=== PATIENT | female | born 1975 | race Caucasian/White ===

== ENCOUNTER 2019-09-09 11:13 | Outpatient (CLI) | payer BC, SELFPAY ==
--- NOTE | ~2019-09-09 | MMUS_ITS ---
EXAMINATION: MM diagnostic amie LT w zack, US breast LT limited HISTORY: Palpable left breast abnormality. Nipple discharge. TECHNIQUE: Additional 3-D tomosynthesis images of the left breast were performed and synthetic 2-D im ages were generated. CAD analysis was submitted and interpreted. High resolution left breast ultrasou nd was performed. COMPARISON: 12/13/2018 FINDINGS: MAMMOGRAPHIC FINDINGS: Breast composed of scattered areas of fibroglandular density. There are no suspicious masses, calcifi cations or architectural distortion in the left breast to suggest malignancy. ULTRASOUND: Left breast ultrasound: Normal heterogeneous echotexture in the area palpable concern. No discrete mass. IMPRESSION: 1. No mammographic or sonographic evidence for malignancy in the left breast. 2. Routine yearly screening mammogram and regular clinical breast examination are recommended. Recomm end follow-up clinical management for breast discharge. BI-RADS Category 1: Negative Reviewed, dictated and finalized at location A. IMPRESSION: 1. No mammographic or sonographic evidence for malignancy in the left breast. 2. Routine yearly screening mammogram and regular clinical breast examination a re recommended. Recommend follow-up clinical management for breast discharge. BI-RADS Category 1: Negative
== END 2019-09-09 11:14 | disposition home or self-care (01) ==
LOC: ANHIMG 11:18
PROVIDERS: PCP Family Medicine; Visit Provider Physician Assistant Medical
DX: N64.59 Other signs and symptoms in breast (principal)
CPT/HCPCS: 76642; 77061; 77065; G0279

== ENCOUNTER 2020-03-23 16:52 | Outpatient (CLI) | payer BC, SELFPAY ==
[2020-03-23 17:35] LABS: Hematocrit 41.8 % (37.0-47.0); Hemoglobin 13.8 g/dL (12.0-15.0); Mean Corpuscular Hemoglobin 31.4 pg (26-34); Mean Corpuscular Volume 95.2 fl (80-100); Mean Platelet Volume 10.8 fl (7.4-10.4); Platelet Count Result 287 k/mm3 (150-375); Red Blood Count 4.39 M/mm3 (4.2-5.4); Red Cell Distribution Width 12.4 % (11.5-14.5); White Blood Count 8.3 K/mm3 (4.5-10.0)
[2020-03-23 17:46] LABS: Anion Gap 7 mmol/L (8-16); Blood Urea Nitrogen 9 mg/dL (7-17); Calcium 8.9 mg/dL (8.4-10.2); Carbon Dioxide 26 mmol/L (22-30); Chloride 104 mmol/L (98-107); Estimated Glomerular Filt Rate > 60; Glucose 90 mg/dL (65-105); Potassium 3.7 mmol/L (3.4-5.0); Sodium 137 mmol/L (137-145)
== END 2020-03-23 16:53 | disposition home or self-care (01) ==
LOC: ANHLAB 16:53
PROVIDERS: PCP Family Medicine; Visit Provider Physician Assistant Medical
DX: R00.2 Palpitations (principal)
CPT/HCPCS: 36415; 80048; 84443; 85027

== ENCOUNTER 2020-03-31 08:40 | Outpatient (CLI) | payer BC, SELFPAY ==
--- NOTE | 2020-03-31 08:49 | EST_ITS ---
Patient Info Name: Tatyana Steiner Age: 44 years : 1975 Gender: Female Ht: 69 in Wt: 203 lbs BSA: 2.14 m2 Exam Date: 03/31/2020 9:08 AM Exam Location: [facility] Stress Patient Status: Outpatient Admit Date: 03/31/2020 Staff Ordering Physician: Debra Joaquin PAC Attending Provider: Debra Joaquin Exercise Technologist: Guillermina Lazo RDCS Exercise Physician: Roberto Lee DO Exam Type: CA stress test treadmill Study Info Indications R00.2 - Palpitations R07.9 - Chest pain, unspecified A treadmill exercise stress test was performed. Summary 1. 1. Negative Kendall exercise stress test for ischemic ST changes by ECG criteria. 2. 2. Good functional capacity, achieving 10 METs of workload. 3. 3. Appropriate HR response to exercise. 4. 4. Appropriate HR recovery at 1 minute post exercise. 5. 5. No imaging with stress testing. 6. 6. Patient informed of the above results. Protocol: [facility]all Stress ECG Details Stage: REST Duration (min): 6 min : 46 sec Speed (mph): 0.0 Grade (%): 0 HR (bpm): 70 SBP (mmHg): 131 DBP (mmHg): 80 METS: --- Stage: REST Duration (min): 9 min : 42 sec Speed (mph): 0.0 Grade (%): 0 HR (bpm): 74 SBP (mmHg): 131 DBP (mmHg): 80 METS: --- Stage: STAGE 1 Duration (min): 1 min : 0 sec Speed (mph): 1.7 Grade (%): 10 HR (bpm): 106 SBP (mmHg): 131 DBP (mmHg): 80 METS: --- Stage: STAGE 1 Duration (min): 2 min : 0 sec Speed (mph): 1.7 Grade (%): 10 HR (bpm): 115 SBP (mmHg): 131 DBP (mmHg): 80 METS: --- Stage: STAGE 1 Duration (min): 3 min : 0 sec Speed (mph): 1.7 Grade (%): 10 HR (bpm): 122 SBP (mmHg): 147 DBP (mmHg): 82 METS: --- Stage: STAGE 2 Duration (min): 1 min : 0 sec Speed (mph): 2.5 Grade (%): 12 HR (bpm): 132 SBP (mmHg): 147 DBP (mmHg): 82 METS: --- Stage: STAGE 2 Duration (min): 2 min : 0 sec Speed (mph): 2.5 Grade (%): 12 HR (bpm): 139 SBP (mmHg): 150 DBP (mmHg): 79 METS: --- Stage: STAGE 2 Duration (min): 3 min : 0 sec Speed (mph): 2.5 Grade (%): 12 HR (bpm): 141 SBP (mmHg): 150 DBP (mmHg): 79 METS: --- Stage: STAGE 3 Duration (min): 1 min : 0 sec Speed (mph): 3.4 Grade (%): 14 HR (bpm): 157 SBP (mmHg): 152 DBP (mmHg): 78 METS: --- Stage: STAGE 3 Duration (min): 2 min : 0 sec Speed (mph): 3.4 Grade (%): 14 HR (bpm): 164 SBP (mmHg): 152 DBP (mmHg): 78 METS: --- Stage: STAGE 3 Duration (min): 2 min : 0 sec Speed (mph): 3.4 Grade (%): 14 HR (bpm): 164 SBP (mmHg): 152 DBP (mmHg): 78 METS: --- Stage: RECOVERY Duration (min): 0 min : 59 sec Speed (mph): 0.0 Grade (%): 0 HR (bpm): 137 SBP (mmHg): 111 DBP (mmHg): 78 METS: --- Stage: RECOVERY Duration (min): 1 m
--- NOTE | 2020-04-02 11:51 | WPDHOLTEREM ---
Holter/Event Monitor Holter/Event Monitor Date of procedure: 03/31/20 Procedure Type: 24 hour holter monitor Indications: Chest pain Conclusion: 1. 24 hour holter monitor on 03/31/20. 2. Underlying rhythm is sinus rhythm. HR range 49-133 bpm; average HR 78 bpm. 3. There are 2 premature supraventricular complexes. No supraventricular tachycardia. 4. No premature ventricular complexes. No ventricular tachycardia. 5. No sinoatrial or atrioventricular blocks. No significant pauses greater than 2 seconds. 6. Patient reports symptoms of palpitations and flutter which demonstrate sinus rhythm, HR range 77-88 bpm.
== END 2020-03-31 08:41 | disposition home or self-care (01) ==
PROVIDERS: PCP Family Medicine; Visit Provider Physician Assistant Medical
DX: R07.9 Chest pain, unspecified (principal); R00.2 Palpitations
CPT/HCPCS: 93017; 93225; 93226

== ENCOUNTER 2020-05-30 09:01 | Outpatient (CLI) | payer BC, SELFPAY ==
[2020-05-30 09:28] LABS: Cholesterol 197 mg/dL (0-200); HDL Direct 68 mg/dL; Triglycerides 175 mg/dL (<150)
[2020-05-30 09:41] LABS: LDL Cholesterol Direct 110 mg/dL
== END 2020-05-30 09:02 | disposition home or self-care (01) ==
LOC: ANHLAB 09:03
PROVIDERS: PCP Family Medicine; Visit Provider Internal Medicine Cardiovascular Disease
DX: Z13.220 Encounter for screening for lipoid disorders (principal); Z13.6 Encounter for screening for cardiovascular disorders; R00.2 Palpitations; E66.3 Overweight
CPT/HCPCS: 36415; 80061

== ENCOUNTER 2021-08-25 07:11 | Outpatient (CLI) | payer OTHER, SELFPAY ==
[2021-08-25 07:57] LABS: Basophils Percent Auto 0.6 % (0.2-1.2); Eosinophils Absolute Auto 0.1 K/mm3 (0-0.3); Eosinophils Percent Auto 1.5 % (0-4.4); Hematocrit 42.1 % (37.0-47.0); Hemoglobin 13.5 g/dL (12.0-15.0); Immature Granulocyte Absolute 0.01 K/mm3 (0.00-0.031); Immature Granulocyte Percent A 0.2 % (0-0.5); Lymphocytes Absolute Auto 2.13 K/mm3 (0.9-3.2); Lymphocytes Percent Auto 32.6 % (18.3-44.2); Mean Corpuscular HGB Conc 32.1 g/dl (32-36); Mean Corpuscular Hemoglobin 30.5 pg (26-34); Mean Corpuscular Volume 95.2 fl (80-100); Mean Platelet Volume 10.6 fl (7.4-10.4); Monocytes Absolute Auto 0.4 K/mm3 (0.1-0.6); Monocytes Percent Auto 6.3 % (2.6-8.5); Neutrophils Absolute Auto 3.8 K/mm3 (1.3-6.7); Neutrophils Percent Auto 58.8 % (45.5-73.1); Platelet Count Result 258 k/mm3 (150-375); Red Blood Count 4.42 M/mm3 (4.2-5.4); Red Cell Distribution Width 12.4 % (11.5-14.5); White Blood Count 6.5 K/mm3 (4.5-10.0)
[2021-08-25 08:13] LABS: Anion Gap 6 mmol/L (8-16); Blood Urea Nitrogen 10 mg/dL (7-17); Calcium 8.8 mg/dL (8.4-10.2); Carbon Dioxide 24 mmol/L (22-30); Chloride 108 mmol/L (98-107); Cholesterol 228 mg/dL (0-200); Estimated Glomerular Filt Rate > 60; Glucose 100 mg/dL (65-110); HDL Direct 70 mg/dL; Sodium 138 mmol/L (137-145); Triglycerides 144 mg/dL (<150)
[2021-08-25 08:26] LABS: LDL Cholesterol Direct 122 mg/dL
== END 2021-08-25 07:12 | disposition home or self-care (01) ==
LOC: ANHLAB 07:14
PROVIDERS: PCP Family Medicine; Visit Provider Physician Assistant Medical
DX: R73.01 Impaired fasting glucose (principal); N39.0 Urinary tract infection, site not specified; Z13.220 Encounter for screening for lipoid disorders
CPT/HCPCS: 36415; 80048; 80061; 85025

== ENCOUNTER 2022-01-04 10:14 | Outpatient (CLI) | payer OTHER, SELFPAY ==
--- NOTE | ~2022-01-04 | MM_ITS ---
EXAMINATION: MM screening [facility] BI w zack HISTORY: Screening mammogram TECHNIQUE: Craniocaudal and mediolateral oblique 3-D tomosynthesis images were obtained and synthetic 2-D images were generated. CAD analysis was submitted and interpreted. COMPARISON: 09/09/2019, 12/13/2018 BREAST PARENCHYMAL COMPOSITION: There are scattered areas of fibroglandular density. FINDINGS: No suspicious mass, calcification, or architectural distortion are identified in either melissa ast to suggest malignancy. There has been no suspicious interval change. IMPRESSION: 1. No mammographic evidence of malignancy. 2. Recommend routine screening mammography in one year. BI-RADS Category 1: Negative Reviewed, dictated and finalized at location A.
== END 2022-01-04 10:15 | disposition home or self-care (01) ==
PROVIDERS: PCP Family Medicine; Visit Provider Obstetrics & Gynecology
DX: Z12.31 Encounter for screening mammogram for malignant neoplasm of breast (principal)
CPT/HCPCS: 77063; 77067

== ENCOUNTER 2022-03-18 07:08 | Outpatient (CLI) | payer OTHER, SELFPAY ==
--- NOTE | ~2022-03-18 | MR_ITS ---
EXAMINATION: MR brain/brain stem wo con DATE: 03/18/2022 08:35 INDICATION: Dizziness. Ocular migraine. TECHNIQUE: Magnetic resonance imaging (MRI) of the brain and brainstem was performed without intraven ous contrast. COMPARISON: Head CT 12/01/2017 FINDINGS: There are greater than 15 scattered foci of increased T2-weighted signal intensity in the c erebral white matter. No infratentorial lesions. There is no acute ischemic infarct or intracranial h emorrhage. The ventricles are normal in size. Orbits are normal. The paranasal sinuses are clear. The mastoid air cells are normal. IMPRESSION: 1. Mild nonspecific cerebral white matter disease. The differential diagnosis includes premature employee services manager brenda small vessel ischemic disease (especially if the patient has cardiovascular risk factors), demyel inating disease such as multiple sclerosis, drug abuse, vasculitis, or reactive astrocytosis (gliosis ) secondary to nonspecific etiology. Reviewed, dictated and finalized at location A. N HOIST OPERATOR IMPRESSION: 1. Mild nonspecific cerebral white matter disease. The differential diagnosis i ncludes premature chronic small vessel ischemic disease (especially if the laina ent has cardiovascular risk factors), demyelinating disease such as multiple sc lerosis, drug abuse, vasculitis, or reactive astrocytosis (gliosis) secondary t o nonspecific etiology.
== END 2022-03-18 07:09 | disposition home or self-care (01) ==
PROVIDERS: PCP Family Medicine; Visit Provider Nurse Practitioner Family
DX: R42 Dizziness and giddiness (principal); G43.109 Migraine with aura, not intractable, without status migrainosus; R93.0 Abnormal findings on diagnostic imaging of skull and head, not elsewhere classified
CPT/HCPCS: 70551

== ENCOUNTER 2022-05-02 06:40 | Outpatient (CLI) | payer OTHER, SELFPAY ==
--- NOTE | ~2022-05-02 | MR_ITS ---
MRI of the left foot CLINICAL HISTORY: Pain TECHNIQUE: Sagittal T1-weighted and STIR images, axial proton-density and proton-density fat-sat imag es, and coronal T1-weighted and proton-density fat-sat images were acquired. FINDINGS: There is marrow edema extensively involving the second metatarsal shaft with probable focal cortical disruption, consistent with fracture/stress fracture at the distal second metatarsal shaft. Remaining osseous structures are intact. Joint spaces are preserved, without significant degenerative change. No joint effusion evident. Flexor and extensor tendons are intact. There is minimal intermetatarsal bursitis of the first inters pace. There is mild soft tissue edema about the stress fracture site. Musculature otherwise appears u nremarkable. No mass lesion or fluid collection evident. Lisfranc ligament is intact. IMPRESSION: Findings consistent with stress fracture versus nondisplaced complete fracture at the distal second m etatarsal shaft. Minimal intermetatarsal bursitis at the first interspace. Reviewed, dictated and finalized at [facility]. ERMAKER SHIP IMPRESSION: Findings consistent with stress fracture versus nondisplaced complete fracture at the distal second metatarsal shaft. Minimal intermetatarsal bursitis at the first interspace.
== END 2022-05-02 06:41 | disposition home or self-care (01) ==
PROVIDERS: PCP Family Medicine; Visit Provider Family Medicine
DX: M79.672 Pain in left foot (principal); R22.42 Localized swelling, mass and lump, left lower limb; R26.2 Difficulty in walking, not elsewhere classified; M77.52 Other enthesopathy of left foot and ankle
CPT/HCPCS: 73718

== ENCOUNTER 2022-09-13 12:13 | Emergency (ER) | payer OTHER, SELFPAY ==
--- NOTE | 2022-09-13 13:06 | ED.DENTAL ---
HPI - Dental/Oral General Chief complaint: Dental/Oral Stated complaint: R FACIAL PAIN/RED SPOT ON CORNER OF MOUTH Time Seen by Provider: 09/13/22 13:07 Source: patient, RN notes reviewed and old records reviewed Mode of arrival: ambulatory Limitations: no limitations History of Present Illness HPI Narrative: 47-year-old female presents to the [facility] with right facial pain. Has a cold sore to the right lateral lip area. Also reports swollen lymph node to the right lower jaw. Did see a dentist a year ago. Had to cancel due to being on Eliquis several months ago. Denies any dental pain Related Data Allergies Allergy/AdvReac Type Severity Reaction Status Date / Time amoxicillin Allergy Unknown Rash Verified 09/13/22 12:41 Sulfa (Sulfonamide Allergy Unknown Unknown Verified 09/13/22 12:41 Antibiotics) AMOXICILLIN TRIHYDRATE Allergy HIVES, Uncoded 09/13/22 12:41 ITCHING Review of Systems Review of Systems: All systems reviewed & are unremarkable except as noted in HPI and below Constitutional: Constitutional: Reports no additional constitutional complaints Eyes: Eyes: Reports no additional eye complaints ENT: Reports as per HPI Cardiovascular: Cardiovascular: Reports no additional cardiovascular complaints, Denies chest pain and Denies dyspnea Respiratory: Respiratory: Reports no additional respiratory complaints, Denies chest congestion, Denies cough and Denies dyspnea Gastrointestinal: Gastrointestinal: Reports no additional gastrointestinal complaints, Denies abdominal pain, Denies nausea and Denies vomiting Musculoskeletal: Musculoskeletal: Reports no additional musculoskeletal complaints Integumentary/Breasts: Skin/Breast: Reports system reviewed and no additional complaints, except as docu Neurologic: Reports system reviewed and no additional complaints, except as documented Psychiatric: Psychiatric: Reports no additional psychiatric complaints Allergic/Immunologic: Allergic/Immunologic: Reports no additional allergic/immunologic complaints [facility] Past Medical History Medical History BMI 29.0-29.9,adult BMI 30.0-30.9,adult Family History Family History Father Mesothelioma Mother COPD (chronic obstructive pulmonary disease) Tobacco abuse Sibling No problems noted. Other Diabetes mellitus Family history of coronary artery disease Family history of malignant neoplasm of breast Family history of malignant neoplasm of stomach Hypertension Social History Social History Smoking status: Never smoker Second hand tobacco smoke exposure: Yes Alcohol intake: current Substance use: never Substance use type: does not use Living arrangements: with family Occupation/Education: occupation Additional occupation/education comments: [employer] Gender identity (if verbalized by the patient): Female Comments At the time of my signature, I reviewed and agree with the nursing past medical, surgical, social, and family history. There is no relevant family history pertinent to the patient complaint. Exam Const: General: cooperative, healthy appearing, comfortable, no acute distress, well developed, alert and well nourished Nutritional Appearance: well nourished Orientation/consciousness: patient oriented x3 Limitations: no limitations HENMT: Head: normal to inspection Ears: hearing grossly normal bilaterally, external ears normal, TM's normal bilaterally, EAC's normal, mastoids normal and no periauricular adenopathy Face/Nose/Sinus: Normal external nose present, Normal nares present, Normal nasal mucous membranes and turbinates present and normal facial exam Face and sinus: normal facial exam Face images: 1. Cold sore blister noted Mouth: Yes Normal oral and p
[2022-09-13 14:46] VITALS: BP 142/87; PULSE 85; RESP 16; TEMP 36.2; O2SAT 99
== END 2022-09-13 13:30 | disposition home or self-care (01) ==
PROVIDERS: Emergency Provider Nurse Practitioner; PCP Internal Medicine
DX: R59.1 Generalized enlarged lymph nodes (principal); R68.84 Jaw pain; B00.1 Herpesviral vesicular dermatitis
CPT/HCPCS: 99213; G0463

== ENCOUNTER 2022-10-05 16:53 | Emergency (ER) | payer OTHER, SELFPAY ==
--- NOTE | ~2022-10-05 | XR_ITS ---
EXAMINATION: XR hip LT min 2V DATE: 10/05/2022 17:27 INDICATION: Left hip pain post fall TECHNIQUE: Anteroposterior and frog-leg lateral views of the left hip were obtained. COMPARISON: None. FINDINGS: Alignment is normal. No fracture. Joint spaces are normal. Soft tissues are unremarkable. IMPRESSION: 1. Negative left hip radiographs. Reviewed, dictated and finalized at location A.
--- NOTE | ~2022-10-05 | XR_ITS ---
EXAMINATION: XR tibia fibula LT 2V DATE: 10/05/2022 17:27 INDICATION: Left lower leg pain post fall TECHNIQUE: Anteroposterior and lateral views of the left tibia and fibula were obtained. COMPARISON: None. FINDINGS: Alignment is normal. No fracture. Joint space at the left knee, ankle, mid and hindfoot appear normal on nonweightbearing imaging. No ankle joint effusion. Small Achilles calcaneal spur. Soft tissues ar e unremarkable. IMPRESSION: 1. No acute osseous abnormality. Reviewed, dictated and finalized at location A.
--- NOTE | 2022-10-05 16:57 | ED.FALL ---
HPI - Fall General Chief Complaint: Fall Stated Complaint: Fall at home Time Seen by Provider: 10/05/22 16:56 Source: patient Mode of arrival: ambulatory Limitations: no limitations History of Present Illness HPI Narrative: Tatyana is a 47-year-old female patient presenting to the clinic today with complaints of a fall at home on Monday evening while in laundry she stepped into a drain and did a left lunge causing injury to her left lower leg and left hip. She reports she also has some mild pain over the left elbow and left shoulder. Has taken a muscle relaxer and Tylenol/Motrin for the pain Related Data Home Medications Medication Instructions Recorded Confirmed cyanocobalamin (vitamin B-12) 1,000 mcg PO DAILY 10/05/22 10/05/22 1,000 mcg sublingual tablet cyclobenzaprine 5 mg tablet 5 mg PO PRN PRN Muscle Spasm 10/05/22 10/05/22 Allergies Allergy/AdvReac Type Severity Reaction Status Date / Time amoxicillin Allergy Unknown Rash Verified 10/05/22 17:18 Sulfa (Sulfonamide Allergy Unknown Unknown Verified 10/05/22 17:18 Antibiotics) AMOXICILLIN TRIHYDRATE Allergy HIVES, Uncoded 09/13/22 12:41 ITCHING Review of Systems Review of Systems: Pertinent positives per HPI. Patient denies any fever, chills, rash, headache, visual changes, dizziness, cough, runny nose, sore throat, shortness of breath, chest pain, palpitations, nausea, vomiting, diarrhea, constipation, abdominal pain, or any urinary issues. [facility] Past Medical History Medical History BMI 29.0-29.9,adult BMI 30.0-30.9,adult Family History Family History Father Mesothelioma Mother COPD (chronic obstructive pulmonary disease) Tobacco abuse Sibling No problems noted. Other Diabetes mellitus Family history of coronary artery disease Family history of malignant neoplasm of breast Family history of malignant neoplasm of stomach Hypertension Social History Social History Smoking status: Never smoker Second hand tobacco smoke exposure: Yes Alcohol intake: current Substance use: never Substance use type: does not use Living arrangements: with family Occupation/Education: occupation Additional occupation/education comments: [employer] Gender identity (if verbalized by the patient): Female Comments At the time of my signature, I reviewed and agree with the nursing past medical, surgical, social, and family history. There is no relevant family history pertinent to the patient complaint. Exam Narrative: General: Well-developed, well nourished, in no apparent distress Head: Normocephalic, atraumatic. Cardio: Regular rate and rhythm, s1 and s2 normal, no murmur appreciated. Resp: Clear to auscultation bilaterally, no rhonchi, rales, wheezing or rubs. Musculoskeletal: No deformity, no crepitus palpable, no neck pain, tender to palpation over the left upper lower lateral leg and the left lateral hip, pain to the left lateral hip with internal and external rotation,tender over the musculature of the posterior shoulder and to the left elbow, grossly normal range of motion, muscle strength strong and equal, peripheral pulse strong, no edema, no cyanosis, normal gait and station Course Course Emergency Course: Portions of this record may have been created with voice recognition software. Level of Care: Express Care Visit Vital Signs Vital signs: Vital signs reviewed MDM - Fall MDM Narrative Medical decision making narrative: At the time of visit patient is resting comfortably on the exam table. X-rays of the left tib-fib and will left hip were performed and were negative for any sign of fracture or malalignment. I suspect patient has a ground level fall with left hip contusion,
[2022-10-05 17:06] VITALS: BP 135/74; PULSE 83; RESP 16; TEMP 36.4; O2SAT 99
== END 2022-10-05 17:50 | disposition home or self-care (01) ==
LOC: EXPGOSH 17:00
PROVIDERS: Emergency Provider Nurse Practitioner Family; PCP Internal Medicine
DX: S86.912A Strain of unspecified muscle(s) and tendon(s) at lower leg level, left leg, initial encounter (principal); S76.012A Strain of muscle, fascia and tendon of left hip, initial encounter; S46.912A Strain of unspecified muscle, fascia and tendon at shoulder and upper arm level, left arm, initial encounter; S70.02XA Contusion of left hip, initial encounter; S40.022A Contusion of left upper arm, initial encounter; W19.XXXA Unspecified fall, initial encounter
CPT/HCPCS: 73502; 73590; 99214; G0463

== ENCOUNTER 2023-02-06 16:58 | Emergency (ER) | payer OTHER, SELFPAY ==
--- NOTE | ~2023-02-06 | XR_ITS ---
EXAMINATION: XR elbow RT min 3V DATE: 02/06/2023 22:23 INDICATION: 2 weeks of nontraumatic generalized right elbow pain TECHNIQUE: Anteroposterior, two oblique and lateral views of the right elbow were obtained. COMPARISON: None. FINDINGS: Alignment is normal. No fracture or joint effusion. Joint spaces are normal. No cortical erosions. So ft tissues are unremarkable. IMPRESSION: 1. Negative right elbow radiographs. Reviewed, dictated and finalized at location A. ICATION DEVELOPMENT INTERN
[2023-02-06 17:30] VITALS: BP 146/68; PULSE 81; RESP 14; TEMP 36.3; O2SAT 100
[2023-02-06 19:16] VITALS: BP 152/81; PULSE 79; RESP 12; TEMP 36.4; O2SAT 100
[2023-02-06 22:08] VITALS: BP 157/85; PULSE 73; RESP 16; O2SAT 100
[2023-02-07] VITALS (14 sets, daily range): BP systolic 132–142; BP diastolic 71–80; PULSE 76; RESP 20; O2SAT 100
--- NOTE | 2023-02-07 | ECG_ITS ---
Measurements Intervals [place] Rate: 63 P: 62 RI: 146 QRS: 60 QRSD: 112 T: 36 QT: 398 QTc: 409 Interpretive Statements SINUS RHYTHM BORDERLINE T WAVE ABNORMALITY- ANTERIOR LEADS BASELINE ARTIFACT- I, II, AVR BORDERLINE ECG NO PREVIOUS ECG AVAILABLE FOR COMPARISON Electronically Signed On 02-07-2023 6:43:11 FLAP PRESSER by Roberto Lee D.O.
--- NOTE | 2023-02-07 00:01 | ED.EXTPRO ---
HPI - Extremity Problem General Chief complaint: Extremity Problem,Nontraumatic Stated complaint: R elbow pain Time Seen by Provider: 02/06/23 23:11 Source: patient Mode of arrival: ambulatory Limitations: no limitations History of Present Illness HPI Narrative: Patient is a 47-year-old female who presents to the ED with report of right arm /elbow pain. Patient reports having pain intermittently for the last 2 weeks. Pain seemed to become worse today. She states pain feels similar to when she had a DVT in her left calf in May of this year after having L foot surgery. She was on anticoagulation for 3 months but is not currently on any blood thinners. Denies any significant swelling of her arm. Does report occasional tingling sensation. Reports intermittent chest pain, last occurring this morning. Denies shortness of breath, dyspnea on exertion. Denies pleuritic pain. Denies lower extremity pain. No recent long-distance travel /immobilization. She is not currently on any hormonal supplements. Related Data Home Medications Medication Instructions Recorded Confirmed cyanocobalamin (vitamin B-12) 1,000 mcg PO DAILY 10/05/22 10/05/22 1,000 mcg sublingual tablet cyclobenzaprine 5 mg tablet 5 mg PO PRN PRN Muscle Spasm 10/05/22 10/05/22 Allergies Allergy/AdvReac Type Severity Reaction Status Date / Time amoxicillin Allergy Unknown Rash Verified 10/05/22 17:18 Sulfa (Sulfonamide Allergy Unknown Unknown Verified 10/05/22 17:18 Antibiotics) AMOXICILLIN TRIHYDRATE Allergy HIVES, Uncoded 09/13/22 12:41 ITCHING Review of Systems Review of Systems: CONSTITUTIONAL: Denies fever, chills, or sweats. CARDIOVASCULAR: See HPI. RESPIRATORY: Denies cough or dyspnea. GASTROINTESTINAL: Denies abdominal pain, nausea, vomiting. MUSCULOSKELETAL: See HPI. NEUROLOGIC: See HPI. All systems reviewed & are unremarkable except as noted in HPI and below PMFSH Past Medical History Medical History BMI 29.0-29.9,adult BMI 30.0-30.9,adult Family History Family History Father Mesothelioma Mother COPD (chronic obstructive pulmonary disease) Tobacco abuse Sibling No problems noted. Other Diabetes mellitus Family history of coronary artery disease Family history of malignant neoplasm of breast Family history of malignant neoplasm of stomach Hypertension Social History Social History Smoking status: Never smoker Second hand tobacco smoke exposure: Yes Alcohol intake: current Substance use: never Substance use type: does not use Living arrangements: with family Occupation/Education: occupation Additional occupation/education comments: [employer] Gender identity (if verbalized by the patient): Female Exam Narrative: GENERAL: Well appearing, obese with BMI of 31.8, non-toxic, in no acute distress. HEAD: Normocephalic, atraumatic. NECK: Supple. No adenopathy, no masses. RESPIRATORY: Airway patent, respirations nonlabored. Clear to auscultation bilaterally, no rales, rhonchi, wheezing. CARDIOVASCULAR: Regular rate and rhythm without murmurs, rubs, or gallops. Radial pulses 2+ and equal bilaterally. MUSCULOSKELETAL: Moves all extremities. No gross deformities. full range of motion of right arm. Mild tenderness over proximal dorsal forearm, no distinct tenderness over the olecranon, medial or lateral epicondyle. No significant swelling noted of right upper extremity. Sensation intact. SKIN: Warm, dry, normal color. No rashes. NEURO: A&O X3. Speech clear. Cranial nerves II-XII grossly intact. No ataxic movements. PSYCHIATRIC: Appropriate mood and affect. Normal interaction. Course Vital Signs Vital signs: Vital Signs Temperature 97.4 F L
--- NOTE | 2023-02-07 00:31 | PC.NURSE ---
green, blue and purple top sent to lab.
[2023-02-07 00:44] LABS: Partial Thromboplastin Time 23.2 SECONDS (22.3-36.8); Prothrombin Time 13.2 Seconds (11.1-14.7)
[2023-02-07 00:56] LABS: Troponin I < 0.012 ng/mL (0.000-0.034)
== END 2023-02-07 02:27 | disposition home or self-care (01) ==
PROVIDERS: Emergency Provider Physician Assistant; PCP Internal Medicine
DX: M79.631 Pain in right forearm (principal); R94.31 Abnormal electrocardiogram [ECG] [EKG]; Z86.718 Personal history of other venous thrombosis and embolism
CPT/HCPCS: 36415; 73080; 84484; 85380; 85610; 85730; 93005; 93971; 99284

== ENCOUNTER 2023-02-07 06:58 | Outpatient (CLI) | payer OTHER, SELFPAY ==
--- NOTE | ~2023-02-07 | US_ITS ---
EXAMINATION: US venous doppler UE RT DATE: 02/07/2023 08:00 INDICATION: Right elbow pain for 2 weeks. History of DVT. TECHNIQUE: William scale images with and without compression and Doppler images of the right upper extre mity veins were obtained. COMPARISON: None. FINDINGS: The right internal jugular vein, subclavian vein, axillary vein, brachial veins, basilic vein, cephal ic vein, radial vein, and ulnar vein are patent. IMPRESSION: 1. Patent right upper extremity veins. No evidence of deep venous thrombosis. Reviewed, dictated and finalized at location L. ING OPERATOR
== END 2023-02-07 06:59 | disposition home or self-care (01) ==
PROVIDERS: PCP Internal Medicine; Visit Provider Internal Medicine
DX: M79.601 Pain in right arm (principal)
CPT/HCPCS: 93971